=== PATIENT | male | born 1960 | race Caucasian/White ===

== ENCOUNTER 2019-02-23 22:28 | Emergency (ER) | payer MEDICARE ==
[~2019-02-23] VITALS: Ht 172.7 cm; Wt 113.6 kg
[2019-02-23] MEDS ORDERED: epiNEPHrine 1 mg/ml inj SQ ONE (22:45)
[2019-02-23] MEDS ORDERED: methylPREDNISolone sod succ 125mg/2ml vial IV ONE (22:45)
[2019-02-23] MEDS ORDERED: diphenhydrAMINE 50 mg/ml inj IV ONE (22:45)
[2019-02-23] MEDS ORDERED: famotidine/PF 10 mg/ml inj IV ONE (22:45)
[2019-02-24] MEDS ORDERED: PRED20TA PO (01:58)
[2019-02-24] MEDS ORDERED: FAMO40TA73 PO (01:58)
[2019-02-24 02:29] VITALS: BP 126/83
== END 2019-02-24 02:31 | disposition home or self-care (01) ==
LOC: ER 22:29
DX: T78.3XXA Angioneurotic edema, initial encounter (principal); F17.200 Nicotine dependence, unspecified, uncomplicated; Z88.6 Allergy status to analgesic agent; Z88.2 Allergy status to sulfonamides; Z79.899 Other long term (current) drug therapy; Z94.4 Liver transplant status; Y92.89 Other specified places as the place of occurrence of the external cause
CPT/HCPCS: 96372; 96374; 96375; 99283; J0171; J1200; J2930; J3490